=== PATIENT | male | born 1950 | race Caucasian/White ===

== ENCOUNTER 2017-01-19 12:38 | Day surgery (SDC) | payer MEDICARE, BC ==
[~2017-01-19 12:38] MED LIST: METOCLOPRAMIDE HCL 5 MG/ML VIAL IV PRN; NORMAL SALINE 1,000 ML IV PRN; ONDANSETRON HCL/PF 2 MG/ML VIAL IV PRN; oxyCODONE HCL/ACETAMINOPHEN 1 TAB TABLET PO PRN
--- OUTSIDE RECORDS SUMMARY | 2017-01-19 12:42 | XMS REPORT | Continuity of Care Document ---
:1950 Author Organization [facility] ([facility]) Address [address] [place] [address] Phone [phone] Care Team Providers Name Role Phone Joshua Kebede Primary Care Provider [phone] Source Comments This disclosure is being made pursuant to the Care Everywhere program, applicable federal and state laws, and may not contain all informaitonavailable regarding this patient.[facility] ([facility]) Active Allergies and Adverse Reactions No Known Allergies Current Medications Prescription Sig. Disp. Refills Start Date End Date Status enalapril 10 mg Take 10 mg by mouth 09/16/2016 Active tablet daily. flecainide 100 mg Take 100 mg by mouth 08/02/2016 Active tablet 2 times daily. omeprazole 20 mg Take 20 mg by mouth 09/15/2016 Active enteric coated daily. capsule JANTOVEN 2 mg tablet Take 9 mg by mouth 08/28/2016 Active daily. 10 mg on Tuesday and 9 mg the rest of the week RUTIN/HESP/BIOFLAV/C Take by mouth daily. Active /HERB#196 (BIOFLEX PO) inFLIXimab Inject intravenously Active (REMICADE) 100 mg once. injection metoPROLol tartrate Take 1 tablet (25 mg 60 tablet 11 12/07/2016 Active 25 mg tablet total) by mouth 2 times daily. Active Problems Problem Noted Date Persistent atrial fibrillation 11/04/2016 Tachy-syed syndrome 11/04/2016 Cardiac pacemaker in situ- 11/04/2016 [employer] 11/04/2016 Most Recent Encounters Date Type Specialty Providers Description 12/07/2016 Office Visit Heart and Vascular Lisbeth [place], Dx: Paroxysmal atrial COMM[employer]CIAL [employer]ICIAN fibrillation (Primary Dx) 11/11/2016 Telephone Heart and Vascular Maren Brown, Chief Comp: Patient RN Concern 11/04/2016 Pharmacy Visit 11/04/2016 Surgery Cardiology Jack Da Silva MD DEVICE PACEMAKER DC NEW Social History Tobacco Use Types Packs/Day Years Used Date Former Smoker Cigars Quit: 10/03/2005 Smokeless Tobacco: Never Used Last Filed Vital Signs Vital Sign Reading Time Taken Blood Pressure 144/80 12/07/2016 1:05 PM TELEPHONE ORDER SUPERVISOR Pulse 60 12/07/2016 1:05 PM TELEPHONE ORDER SUPERVISOR Temperature 36.2 C (97.2 F) 11/04/2016 1:19 PM TELEPHONE ORDER SUPERVISOR Respiratory Rate 18 11/04/2016 5:21 PM TELEPHONE ORDER SUPERVISOR Height 1.854 m (6' 1") 11/04/2016 1:19 PM TELEPHONE ORDER SUPERVISOR Weight 120.5 kg (265 lb 10.5 oz) 12/07/2016 1:05 PM TELEPHONE ORDER SUPERVISOR Body Mass Index 35.06 12/07/2016 1:05 PM TELEPHONE ORDER SUPERVISOR Oxygen Saturation 95% 11/04/2016 6:31 PM TELEPHONE ORDER SUPERVISOR Plan of Care Health Maintenance Due Date Last Done Comments HCV Screening 1950 Hepatitis B Vaccine (1 of 3 - Primary Series) 1950 Tdap Vaccine 1959 Lipid Disorder Screening 1966 Td Vaccine 1966 Colonoscopy 1998 Prostate Cancer Screening 1998 Zoster Vaccine 2008 Pneumococcal Vaccine (1 of 2 - PCV13) 2013 Influenza Vaccine: Seasonal (#1) 05/03/2016 Results from Last 3 Months CHEST- PA& LATERAL (11/04/2016 6:02 PM) Impressions Findings/impression: Dual-chamber pacemaker leads without evidence of kinking or discontinuity. Bibasal mild atelectasis, otherwise clear lung sullivan without evidence of lobar consolidation or collapse. No sizable pneumothorax or pleural effusion. Within normal cardiomediastinal silhouette without evidence of pulmonary edema. Mild degenerative changes of bilateral acromioclavicular joints. Narrative Procedure: CHEST- PA & LATERAL Clinical Indication: Pacemaker placement Technique: PA and lateral chest radiograph Comparison: No priors Procedure Note Dean, Incoming Imaging Results - Nichelle Nov 04, 2016 8:08 PM TELEPHONE ORDER SUPERVISOR Procedure: CHEST- PA & LATERAL Clinical Indication: Pacemaker placement Technique: PA and lateral chest radiograph Comparison: No priors IMPRESSION Findings/impression: Dual-chamber pacemaker leads without evidence of kinking or discontinuity. Bibasal mild atelectasis, otherwise clear lung sullivan without evidence of lobar consolidation or collapse. No sizable pneumothorax or pleural effusion. Within normal cardiomediastinal silhouette without evidence of pulmonary edema. Mild degenerative changes of bilateral acromioclavicular joints. CARD EP PROCEDURE (11/04/2016 5:10 PM) Jack Chavarria MD 11/04/20166:03 PM Dual Chamber Pacemaker Procedure Report Date: 11/04/2016 EP Attending: Jack Da Silva MD, PhD EP Fellow: Rodríguez Strauss MD MPH Indication 66 y/o man with history of persistent Atrial Fibrillation, hypertension, obesity and psoriasis who has sick sinus syndrome and was evaluated in EP clinic for same. His treatment options were discussed with him in clinic and after discussion of risks, benefits and alternatives, he agreed to precede with pacemaker placement, for which he presents today. Description After the risks and benefits of the procedure were explained and informed consent was obtained, the patient was brought to the electrophysiology lab in the fasting state. He was connected to the EP lab monitoring system, including an external defibrillator. Intravenous antibiotics were administered prior to starting the procedure. The left pectoral region was prepared and draped in a sterile fashion.The electrocardiogram, blood pressure, and oxygenation were monitored during and post-procedure. Moderate conscious sedation was obtained with divided doses of IV versed and IV fentanyl. Venogram The left arm was injected with approximately 15 mL of contrast through a peripheral IV line.A venogram of the left axillary, subclavian, and innominate veins was performed and revealed a patent vessel throughout its course to the superior vena cava. There was no evidence of stenosis. Implant After using 1% lidocaine for local anesthesia to the left pectoral subcutaneous area, a 4-5 cm incision was made inferior to the left clavicle. The subcutaneous tissues were dissected to the level of the prepectoral fascia and a subpectoral pocket was fashioned via electrocautery and blunt dissection. Two left axillary venous accesses were obtained at the level of the first rib via the modified Seldinger technique, and two guidewires were placed into the vein and advanced through the heart into the inferior vena cava. A non-hemostatic sheath was inserted into the left axillary vein over a guidewire. An active fixation, pacemaker lead was inserted and the lead tip positioned at the RV apical septum under fluoroscopic guidance, where the active fixation mechanism was extended. Once appropriate placement was obtained and threshold measurements made to car dumper operator helper's specifications, the lead was anchored to the pectoralis fascia using 2-0 silk over the suture sleeve. R wave sensing was appropriate with appropriate capture threshold. A non-hemostatic sheath was then inserted into the left axillary vein over a guidewire. The right atrial lead was inserted and the lead tip positioned along the anterior RA under fluoroscopic guidance, and the active fixation mechanism was extended. Threshold measurements were obtained to the car dumper operator helper's specifications, and the lead was anchored to the pectoralis fascia using 2-0 silk. After hemostasis was assured, the pulse generator was connected to the atrial and ventricular leads and appropriate lead pacing/impedance was confirmed. The device was placed into the subpectoral pocket with the leads under the device, and the pocket was irrigated with antibiotic solution. The pectoralis was closed with running 2-0 absorbable sutures. The fascia and subcutaneous tissue were closed using running 2-0 absorbable sutures. The subcuticular tissue was approximated using running 4-0 absorbable suture.Dermabond and a dressing were applied to the site. The patient tolerated the procedure well and there were no apparent complications. At the conclusion of the procedure, all sponges and sharps were accounted for by separate counts. He was awoken from sedation and then returned to his room for post procedural monitoring. Device and Lead Information Pulse Generator Model Manfacturer Serial Number Location [id number] [employer] [id number] left pectoral, subcutaneous Lead Model Number Manfacturer Serial Number Lead position RA [id number] [employer] [id number] RA RV 7742 [employer] [id number] RV apical septum Lead Sensing and Thresholds Lead R/P sensing (mV) Threshold (V) Threshold PW (msec) Impedance (?) Final Voltage (V) Final PW (msec) RA 5.0 0.7 0.4 628 3.5 0.4 RV 10.9 0.5 0.4 847 3.5 0.4 Bradycardia Settings Syed Mode LRL URL Pace AVD (ms) Sensed AVD (ms) DDDR 60 120 120-180 100-150 *AV Search+ ON, 350 ms RhythmIQ: AAIR with VVI Backup Estimated blood loss <20 cc Complications none Specimen none Conclusions 1. Venogram showed patent left kyavxchl-jeqnzyqmkl-htcjuhjxc veins to SVC. 2. Stable sensing, capture thresholds, impedances of RA andRV leads. 3.Successful implantation of MRI compatible dual chamber permanent pacemaker. Post Procedural Recommendations 1. Cephalexin for 5 days post procedure. 2. PA & Lat CXR today. 3. Discharge home per patient request. Wound care precautions discussed. 4. Device clinic visit in 1 month ([facility]). 5. EP clinic follow-up in 3 months ([place]). Dr. Da Silva was present for the entire procedure. Rodríguez Strauss MD MPH Fellow, Cardiovascular Medicine EP Attending I saw and evaluated the patient with the EP Fellow, Dr. Strauss, on 11/04/2016. I discussed the case with the fellow and I agree with the findings and plan as documented in the note.I was present and scrubbed for the entire procedure. Jack Da Silva MD, PhD Electrophysiology Procedure Note Jack Da Silva MD - [facility] Nov 04, 2016 5:00 PM TELEPHONE ORDER SUPERVISOR Formatting of this note may be different from the original. Dual Chamber Pacemaker Procedure Report Date: 11/04/2016 EP Attending: Jack Da Silva MD, PhD EP Fellow: Rodríguez Strauss MD MPH Indication 66 y/o man with history of persistent Atrial Fibrillation, hypertension, obesity and psoriasis who has sick sinus syndrome and was evaluated in [facility] for same. His treatment options were discussed with him in clinic and after discussion of risks, benefits and alternatives, he agreed toprecede with pacemaker placement, for which he presents today. Description After the risks and benefits of the procedure were explained and informedconsent was obtained, the patient was brought to the electrophysiology labin the fasting state. He was connected to the EP lab monitoring system, including an external defibrillator. Intravenous antibiotics wereadministered prior to starting the procedure. The left pectoral regionwas prepared and draped in a sterile fashion.The electrocardiogram, blood pressure, and oxygenation were monitored during and post-procedure. Moderate conscious sedation was obtained with divided doses of IV versedand IV fentanyl. Venogram The left arm was injected with approximately 15 mL of contrast through aperipheral IV line.A venogram of the left axillary, subclavian, andinnominate veins was performed and revealed a patent vessel throughout its course to the superior vena cava. There was no evidence of stenosis. Implant After using 1% lidocaine for local anesthesia to the left pectoralsubcutaneous area, a 4-5 cm incision was made inferior to the leftclavicle. The subcutaneous tissues were dissected to the level of the prepectoral fascia and a subpectoral pocket was fashioned viaelectrocautery and blunt dissection. Two left axillary venous accesseswere obtained at the level of the first rib via the modified Seldinger technique, and two guidewires were placed into the vein and advancedthrough the heart into the inferior vena cava. A non-hemostatic sheathwas inserted into the left axillary vein over a guidewire. An active fixation, pacemaker lead was inserted and the lead tip positioned at theRV apical septum under fluoroscopic guidance, where the active fixationmechanism was extended. Once appropriate placement was obtained and threshold measurements made to car dumper operator helper's specifications, the lead wasanchored to the pectoralis fascia using 2-0 silk over the suture sleeve.R wave sensing was appropriate with appropriate capture threshold. A non-hemostatic sheath was then inserted into the left axillary vein overa guidewire. The right atrial lead was inserted and the lead tippositioned along the anterior RA under fluoroscopic guidance, and the active fixation mechanism was extended. Threshold measurements wereobtained to the car dumper operator helper's specifications, and the lead was anchoredto the pectoralis fascia using 2-0 silk. After hemostasis was assured, the pulse generator was connected to theatrial and ventricular leads and appropriate lead pacing/impedance wasconfirmed. The device was placed into the subpectoral pocket with the leads under the device, and the pocket was irrigated with antibioticsolution. The pectoralis was closed with running 2-0 absorbable sutures.The fascia and subcutaneous tissue were closed using running 2-0 absorbable sutures. The subcuticular tissue was approximated usingrunning 4- 0 absorbable suture.Dermabond and a dressing were applied tothe site. The patient tolerated the procedure well and there were no apparentcomplications. At the conclusion of the procedure, all sponges and sharpswere accounted for by separate counts. He was awoken from sedation and then returned to his room for post procedural monitoring. Device and Lead Information Pulse Generator Model Manfacturer Serial Number Location [id number] [employer] [id number] left pectoral, subcutaneous Lead Model Number Manfacturer Serial Number Lead position RA 7741 [employer] [id number] RA RV 7742 [employer] [id number] RV apical septum Lead Sensing and Thresholds Lead R/P sensing (mV) Threshold (V) Threshold PW (msec) Impedance(?) Final Voltage (V) Final PW (msec) RA 5.0 0.7 0.4 628 3.5 0.4 RV 10.9 0.5 0.4 847 3.5 0.4 Bradycardia Settings Syed Mode LRL URL Pace AVD (ms) Sensed AVD (ms) DDDR 60 120 120-180 100-150 *AV Search+ ON, 350 ms RhythmIQ: AAIR with VVI Backup Estimated blood loss <20 cc Complications none Specimen none Conclusions 1. Venogram showed patent left dhiepkzx-ohmxngoemx-cjhvowstn veins toSVC. 2. Stable sensing, capture thresholds, impedances of RA andRV leads. 3. Successful implantation of MRI compatible dual chamber permanentpacemaker. Post Procedural Recommendations 1. Cephalexin for 5 days post procedure. 2. PA & Lat CXR today. 3. Discharge home per patient request. Wound care precautionsdiscussed. 4. Device clinic visit in 1 month ([facility]). 5. EP clinic follow-up in 3 months ([place]). Dr. Da Silva was present for the entire procedure. Rodríguez Strauss MD MPH Fellow, Cardiovascular Medicine EP Attending I saw and evaluated the patient with the EP Fellow, Dr. Strauss, on11/04/2016. I discussed the case with the fellow and I agree with thefindings and plan as documented in the note. I was present and scrubbedfor the entire procedure. Jack Da Silva MD, PhD Electrophysiology PT/INR (PROTHROMBIN TIME/INR) VENOUS (11/04/2016 3:37 PM) Component Value Range PT (Prothrombin Time) 18(H) 9-12 secs INR 1.8 <4.0 Specimen Blood EXTERNAL INR (11/01/2016) Component Value Range Ext INR 2.18
--- NOTE | 2017-01-19 14:43 | OR ---
Operative Report - Dictated Report Narrative: Procedure performed: TRUS guided prostate biopsy Anesthesia: IV/Mac Preoperative diagnosis : elevated PSA Postoperative diagnosis: Same Description of procedure: Preoperative antibiotics administered. Consent obtained. Patient positioned in the left lateral decubitus position. Probe inserted. Measurements taken. Prostate volume: 38 grams Biopsies were then obtained from either side directed laterally from the base, mid, and apical portions of the gland. Total biopsies right: 6 Total biopsies left: 6 Findings: no concerning hypo/hyperechoic areas, normal SV's EBL: 0cc Specimen: prostate Condition: tolerated procedure Follow up: If negative see him in 6 months with PSA/UA. If positive will need counseling
[2017-01-19 16:47] VITALS: BP 113/65
== END 2017-01-19 12:39 | disposition home or self-care (01) ==
LOC: AMB 12:38
PROVIDERS: ATTEND Urology
PROC: 0V903ZX Drainage of Prostate, Percutaneous Approach, Diagnostic (ICD-10-PCS; principal; 2017-01-19 13:00)
DX: N40.1 Benign prostatic hyperplasia with lower urinary tract symptoms (principal); I10 Essential (primary) hypertension; I48.91 Unspecified atrial fibrillation; Z87.891 Personal history of nicotine dependence; Z68.33 Body mass index [BMI] 33.0-33.9, adult